=== PATIENT | male | born 1965 | race Caucasian/White ===

== ENCOUNTER 2017-02-22 08:52 | Inpatient (IN) | payer OTHER ==
[2017-02-22] MEDS ORDERED: NS 500 ML IV ONE (08:58)
[2017-02-22] MEDS ORDERED: MIDAZOLAM 2 MG/2 ML VIAL IVP ONE (08:58)
[2017-02-22] MEDS ORDERED: fentaNYL 100 MCG/2 ML INJ IVP ONE (08:58)
[2017-02-22] MEDS ORDERED: BENZOCAINE UNIT DOSE SPRAY HURRICAINE MM ONE (08:58)
[2017-02-22] MEDS ORDERED: NS 1,000 ML IV ONE (08:59)
[2017-02-22] MEDS ORDERED: DIAZEPAM 5 MG TAB PO ONE (08:59)
[2017-02-22] MEDS ORDERED: FAMOTIDINE 20 MG TAB PO ONE (08:59)
[2017-02-22] MEDS ORDERED: ASPIRIN EC 325 MG TAB PO ONE (08:59)
[2017-02-22] MEDS ORDERED: diphenhydrAMINE 25 MG CAP PO ONE (08:59)
--- NOTE | 2017-02-22 09:13 | CPEKG ---
Heart Rate: 55 RR Interval: 1091 P-R Interval: 188 QRSD Interval: 96 QT Interval: 444 QTC Interval: 425 P [place]: 46 QRS [place]: 16 T Wave [place]: 56 EKG Severity - NORMAL ECG - EKG Impression: SINUS RHYTHM Electronically Signed By: South Garcia 25-Feb-2017 10:37:04
[2017-02-22 09:26] LABS: PLATELET COUNT 219 10^3/uL (150-400)
[2017-02-22 09:37] LABS: PROTIME(PATIENT) 13.4 SEC (12.0-15.0)
[2017-02-22] MEDS ORDERED: ATROPINE SULFATE 1 MG/10 ML SYR ONE (10:21)
[2017-02-22] MEDS ORDERED: LIDOCAINE 1% 300 MG/30 ML SDV ONE (10:26)
[2017-02-22] MEDS ORDERED: IOPAMIDOL (ISOVUE-370) 150 ML BTL IV ONE (10:27)
[2017-02-22] MEDS ORDERED: fentaNYL 100 MCG/2 ML INJ ONE (10:27)
[2017-02-22] MEDS ORDERED: MIDAZOLAM 2 MG/2 ML VIAL ONE (10:27)
[2017-02-22] MEDS ORDERED: LIDOCAINE 1% 5 ML SDV ONE (10:32)
[2017-02-22] MEDS ORDERED: PROPOFOL 200 MG/20 ML VIAL ONE (10:32)
[2017-02-22] MEDS ORDERED: PHENYLEPHRINE HCL 100 MCG/ML SYR ONE (10:37)
--- NOTE | 2017-02-22 11:09 | PDGENHP ---
History & Physical Chief Complaint: abnormal aorta/outpatient testing History of Present Illness: hx of aortic aneurysm, HOCM being evaluated for surgery Pertinent Past, Social, Family History: history of aortic dissection in maternal side Relevant Physical Exam: 04/10 Cardiorespiratory Assessment: Stable CV status for RHC/LHC
--- NOTE | 2017-02-22 11:09 | PDPROPOC ---
Sedation Plan of Care Sedation Plan of Care: mental status noted, patient educated of risks, benefits , alternatives, patient can tolerate sedation ASA Classification: ASA 2 Planned drugs: fentanyl, midazolam Mallampati Score: Class 2 Mallampati Reference Image: Patient passed 3-3-2 rule?: Yes
[2017-02-22] MEDS ORDERED: HEPARIN 10,000 UNIT/10 ML MDV (1,000 UNIT/ML) ONE (11:21)
--- NOTE | 2017-02-22 12:01 | CPIP ---
[f rep st] INVASIVE CARDIAC PROCEDURE PROCEDURE: Transesophageal echocardiogram. He gave informed consent for EMILY. The indication was to assess his septum and his valvular heart dis ease. He had the procedure done with Anesthesia present, with no complications. He tolerated the procedure well, and the attached report gives the results of the study. I spoke with Dr. Sharma, who ordered the test, prior to proceeding with the transesophageal echocardio gram, and I have reported results to him. /[id number]/MODL
--- NOTE | 2017-02-22 12:31 | CPIP ---
[f rep st] INVASIVE CARDIAC PROCEDURE DATE OF PROCEDURE: 02/22/2017 INDICATIONS FOR PROCEDURE: Preoperative evaluation for aortic aneurysm surgery. PROCEDURE: 1. Nonselective right groin sheathogram. 2. 7-Moldovan sheath right common vein. 3. Bilateral selective coronary angiography. 4. Left heart catheterization. 5. Left ventriculogram. 6. Right heart catheterization with [place]-Teri catheter. HISTORY: Briefly, this is a 51-year-old male with history of dilated ascending aorta. The patient h ad outpatient testing which showed an ascending aorta measuring over 5 cm. The patient has been cons ented for possible aortic root surgery with plus or minus septal myectomy. The patient was cleared f or right and left heart catheterization. DESCRIPTION OF PROCEDURE: After consent, the patient was brought to [facility] where the right groin was pr epped and draped in a sterile fashion. Using lidocaine, a short 7-Moldovan sheath was placed in the [facility] common vein. A 6-Moldovan sheath was placed in the right common femoral artery verified angiograph ically. Through the 6-Moldovan sheath, a JL4 catheter was advanced to the left coronary artery. Images of the left coronary artery showed large normal left main. There was a small ramus intermedius comi ng off which was healthy and free of disease. The circumflex was a codominant circulation. The LPLS appeared to be healthy and free of disease. There were 2 marginal arteries coming off the circumfle x, the first marginal artery had mild 20%-30% ostial disease but otherwise appeared healthy and sai l. The LAD was a long vessel which wraps around the apex. There was a small diagonal artery coming off the midbody of the LAD. There was no significant disease in the LAD and it wraps around the apex . There was mild plaque disease in the proximal mid LAD but no significant stenosis. After images we re obtained, the JL5 catheter was removed. Of note, we utilized a JL5 secondary to the dilated aorta . A JR4 catheter was advanced to the right coronary artery. Images of the right coronary artery reve aled normal os, prox, mid RCA. There was mild tubular disease in the mid distal RCA measuring 20%-30 % disease. The RPDA appeared to be healthy and free of disease, though of small caliber. After imag es were obtained, the JR4 catheter was removed. The pigtail catheter advanced to left ventricle. LV EDP was 20 mmHg left. Left ventriculogram in the AMAYA projection showed EF of 65% with no wall motion abnormalities. There was presence of septal hypertrophy as well as on the ventriculogram. Of note though, there was no significant gradient from the pullback of the pigtail from the apex to the aorta . Pigtail catheter was then removed over the 0.035 wire. Right heart catheterization: A [place]Teri catheter was advanced. The catheter was placed in the wedge position with the A-wave 13, V-wave 14 with a mean of 11. PA pressure was measured to be 40/82 with a mean of 26. RV pressure was measured to be 48 with a diastole of 5, end of 10. RA pressure was me asured to be 10/11. PA sat was measured to be 81.2. AO sat was 96.7. Cardiac output by Kaleb was 6. 5, index was 3.25. [place]eri catheter was then removed. Right groin was sutured in place. Of note, the patient was administered 3000 heparin IV at the start of the case. IMPRESSION: 1. Mild nonobstructive coronary artery disease bilaterally in the right and left coronary arteries. 2. Mild pulmonary hypertension. 3. Septal hypertrophy with a normal ejection fraction. PLAN: The patient had a EMILY earlier this morning prior to the catheterization to assess his aortic s ize and measurements, awaiting complete report. The patient will move forward with further evaluatio n by Dr. Sharma. /[id number]/MODL
--- NOTE | 2017-02-22 13:56 | CPEKG ---
Heart Rate: 69 RR Interval: 870 P-R Interval: 184 QRSD Interval: 102 QT Interval: 448 QTC Interval: 480 P [place]: 64 QRS [place]: 17 T Wave [place]: 49 EKG Severity - BORDERLINE ECG - EKG Impression: SINUS RHYTHM EKG Impression: BORDERLINE PROLONGED QT INTERVAL EKG Impression: DIFFUSE ST ELEVATION NOTED (MINIMAL) (QUERY PERICARDITIS) Electronically Signed By: South Garcia 25-Feb-2017 10:38:07
--- NOTE | 2017-02-22 14:09 | PDGENHP ---
History and Physical - Chief Complaint asc ao aneurysm, HOCM - History of Present Illness 51M with known asc ao aneurysm of 5.1 cm and HOCM admitted in advance for risk stratification. Pt last examined on 12/19/16 during initial consultation. During that time the pt had no complaints. The pt currently states he experiences WINTER and denies weakness, light-headedness, CP, abdominal pain or LE edema. History Information - Allergies/Home Medication List Allergies/Adverse Reactions: No Known Allergies Allergy (Unverified 12/15/09 10:21) Home Medications: Aspirin [Aspirin 325 mg (*)] 325 mg PO DAILY 01/22/17 [Last Taken 02/20/17] Atorvastatin Calcium [Lipitor 10 mg (*)] 10 mg PO HS 01/22/17 [Last Taken ] Cholecalciferol Vit D3 [Vitamin D3 2000 units tab (OTC)] 2,000 units PO HS 01/22 [Last Taken 2 Days Ago ~02/20/17] Herbals/Supplements -Info Only 1 ea PO DAILY 01/22/17 [Last Taken Unknown] Metoprolol Tartrate [Lopressor 25 mg (*)] 25 mg PO BID 01/22/17 [Last Taken 21:00] Multivitamins [Multivitamin (*)] 1 each PO HS 01/22/17 [Last Taken 2 Days Ago ~ 02/20/17] Carboxymethylcellulose 1% [Refresh Celluvisc (*)] 1 [place] EACHEYE DAILY PRN [Last Taken Unknown] Diltiazem HCl [Cartia XT 180mg] 180 mg PO HS 02/15/17 [Last Taken 02/21/17] Cyanocobalamin [Vitamin B12 (*)] 1,000 mcg PO HS 02/22/17 [Last Taken 02/20/17] I have personally reviewed and updated: medical history, social history, surgical history - Past Medical History COPD (obstructive (moderate)), hypertension, hyperlipidemia - Social History Smoking Status: Former smoker Alcohol Use: Occasionally Drug Use: None Review of Systems Review of Systems: ROS: 10pt was reviewed & negative except for what was stated in HPI & below Physical Exam Physical Exam: Constitutional: no apparent distress, appears nourished, not in pain Eyes: anicteric sclera Ears, Nose, Mouth, Throat: moist mucous membranes, hearing normal, ears appear normal, no oral mucosal ulcers Cardiovascular: bradycardia Respiratory: no respiratory distress Gastrointestinal: soft, non-tender abdomen Skin: warm, normal color Musculoskeletal: full muscle strength, no muscle tenderness, normal joint ROM Neurologic: AAOx3, sensation intact bilaterally Psychiatric: interacting appropriately, not anxious, not encephalopathic, thought process linear Lab Data & Imaging Review 02/22/17 09:17 02/22/17 09:17 WBC 8.23 10^3/uL (3.80-9.50) 02/22/17 09:17 RBC 5.63 10^6/uL (4.40-6.38) 02/22/17 09:17 Hgb 16.6 g/dL (13.7-17.5) 02/22/17 09:17 Hct 46.2 % (40.0-51.0) 02/22/17 09:17 MCV 82.1 fL (81.5-99.8) 02/22/17 09:17 MCH 29.5 pg (27.9-34.1) 02/22/17 09:17 MCHC 35.9 g/dL (32.4-36.7) 02/22/17 09:17 RDW 11.9 % (11.5-15.2) 02/22/17 09:17 Plt Count 219 10^3/uL (150-400) 02/22/17 09:17 MPV 8.7 fL (8.7-11.7) 02/22/17 09:17 Neut % (Auto) 59.1 % (39.3-74.2) 02/22/17 09:17 Lymph % (Auto) 27.8 % (15.0-45.0) 02/22/17 09:17 [place] % (Auto) 7.5 % (4.5-13.0) 02/22/17 09:17 Eos % (Auto) 4.1 % (0.6-7.6) 02/22/17 09:17 Baso % (Auto) 1.1 % (0.3-1.7) 02/22/17 09:17 Nucleat RBC Rel Count 0.0 % (0.0-0.2) 02/22/17 09:17 Absolute Neuts (auto) 4.86 10^3/uL (1.70-6.50) 02/22/17 09:17 Absolute Lymphs (auto) 2.29 10^3/uL (1.00-3.00) 02/22/17 09:17 Absolute Monos (auto) 0.62 10^3/uL (0.30-0.80) 02/22/17 09:17 Absolute Eos (auto) 0.34 10^3/uL (0.03-0.40) 02/22/17 09:17 Absolute Basos (auto) 0.09 10^3/uL (0.02-0.10) 02/22/17 09:17 Absolute Nucleated RBC 0.00 10^3/uL (0-0.01) 02/22/17 09:17 Immature Gran % 0.4 % (0.0-1.1) 02/22/17 09:17 Immature Gran # 0.03 10^3/uL (0.00-0.10) 02/22/17 09:17 PT 13.4 SEC (12.0-15.0) 02/22/17 09:17 INR 1.00 (0.83-1.16) 02/22/17 09:17 Sodium 144 mEq/L (135-145) 02/22/17 09:17 Potassium 4.4 mEq/L (3.5-5.2) 02/22/17 09:17 Chloride 104 mEq/L (97-110) 02/22/17 09:17 Carbon Dioxide 26 mEq/l (22-31) 02/22/17 09:17 Anion Gap 14 mEq/L (8-16) 02/22/17 09:17 BUN 16 mg/dL (7-23) 02/22/17 09:17 Creatinine 1.0 mg/dL (0.7-1.3) 02/22/17 09:17 Estimated GFR > 60 02/22/17 09:17 Glucose 89 mg/dL (70-100) 02/22/17 09:17 Hemoglobin A1c 5.0 % (4.0-6.0) 02/22/17 09:17 Estim Average Glucose 97 mg/dL (68-126) 02/22/17 09:17 Calcium 10.5 mg/dL (8.5-10.4) H 02/22/17 09:17 Magnesium 2.0 mg/dL (1.6-2.3) 02/22/17 09:17 Triglycerides 125 mg/dL (40-150) 02/22/17 09:17 Cholesterol 157 mg/dL (140-220) 02/22/17 09:17 Cholesterol Risk Factr 0.5 (0.2-1.0) 02/22/17 09: LDL Cholesterol, Calc 85 mg/dL (80-100) 02/22/17 09: LDL Risk Factor 0.8 (0.2-1.0) 02/22/17 09:17 VLDL Cholesterol 25 mg/dL (8-25) 02/22/17 09:17 Non-HDL Cholesterol 110 mg/dL (90-129) 02/22/17 09:17 HDL Cholesterol 47 mg/dL (40-65) 02/22/17 09:17 LDL/HDL Ratio 1.81 RATIO (1.00-3.64) 02/22/17 09:17 Cholesterol/HDL Ratio 3.34 RATIO (1.00-4.97) 02/22/17 09:17 Patient ABO/Rh A NEGATIVE 02/22/17 09: Antibody Screen NEGATIVE 02/22/17 09:17 Imaging Review: 03/03/16 ECHO: mild MR, mild TR, normal EF of 65%, asc ao 4.6 cm, severe asymmetric septal hypertrophy, peak LVOT gradient 72 mmHg 02/22/17 LHC: non-obstructive CAD, mild pulmonary htn Visualized and Interpreted Chest x-ray results: No Chest X-Ray results: other (pending) Visualized and Interpreted EKG results: Yes EKG Interpretation: Positive for: normal sinsus rhythm (bradycardic) Assessment & Plan Assessment: 51M with HOCM and asc ao aneurysm Plan: For asc ao repair and septal myectomy on 02/22/17
[2017-02-22] MEDS ORDERED: ACETAMINOPHEN 325 MG TAB PO PRN (14:26)
[2017-02-22] MEDS ORDERED: METOPROLOL TARTRATE 25 MG TAB PO SCH (21:00)
[2017-02-22] MEDS ORDERED: DILTIAZEM CD 180 MG CAP PO SCH (21:00)
[2017-02-22] MEDS ORDERED: CHLORHEXIDINE GLUC HIBICLENS 118 ML BTL TP SCH (21:00)
[2017-02-23] MEDS ORDERED: TRANEXAMIC ACID 1,000 MG in NS 100 ML IV ONE (06:00)
[2017-02-23] MEDS ORDERED: MUPIROCIN 2% 22 GM OINT NS ONE (06:00)
[2017-02-23] MEDS ORDERED: SODIUM BICARBONATE 20 MEQ, LIDOCAINE 1% 10 ML in NORMOSOL-R 1,000 ML MISC ONE (06:00)
[2017-02-23] MEDS ORDERED: PHENYLEPHRINE HCL 50 MG in NS 250 ML IV ONE (06:00)
[2017-02-23] MEDS ORDERED: NOREPINEPHRINE BITARTRATE 16 MG in NS 250 ML IV ONE (06:00)
[2017-02-23] MEDS ORDERED: INSULIN REGULAR HUMAN 100 UNIT in NS 100 ML IV ONE (06:00)
[2017-02-23] MEDS ORDERED: ceFAZolin 2 GM/SWFI 2 GM/20 ML SYR IVP ONE (06:00)
[2017-02-23] MEDS ORDERED: niCARdipine/NACL 200 ML IV SCH (06:00)
[2017-02-23] MEDS ORDERED: CITRATE DEXTROSE SOLN 500 ML BAG MISC ONE (06:00)
[2017-02-23] MEDS ORDERED: MANNITOL 25% 12.5 GM/50 ML VIAL IVP ONE (06:00)
[2017-02-23] MEDS ORDERED: PROTAMINE SULFATE 50 MG/5 ML VIAL IVP ONE (06:41)
[2017-02-23] MEDS ORDERED: HEPARIN 10,000 UNIT/10 ML MDV (1,000 UNIT/ML) ONE ×2 (06:42→06:44)
[2017-02-23] MEDS ORDERED: niCARdipine/NACL/200 ML BAG IV ONE (06:42)
[2017-02-23] MEDS ORDERED: MILRINONE/DEXTROSE/100 ML BAG IV ONE (06:42)
[2017-02-23] MEDS ORDERED: CALCIUM CHLORIDE 1 GM/10 ML INJ ONE ×3 (06:42→09:58)
[2017-02-23] MEDS ORDERED: NA BICARBONATE 50 MEQ/50 ML VIAL ONE (06:42)
[2017-02-23] MEDS ORDERED: DOPamine/DEXTROSE/250 ML BAG IV ONE (06:42)
[2017-02-23] MEDS ORDERED: AMIODARONE HCL 150 MG/3 ML VIAL ONE ×2 (06:43→06:44)
[2017-02-23] MEDS ORDERED: ALBUMIN 5% 250 ML BOTTLE IV ONE ×2 (06:43→11:16)
[2017-02-23] MEDS ORDERED: LIDOCAINE 2% 100 MG/5 ML SYR ONE ×2 (06:43→07:16)
[2017-02-23] MEDS ORDERED: ceFAZolin 1 GM VIAL ONE (06:43)
[2017-02-23] MEDS ORDERED: ADENOSINE 6 MG/2 ML VIAL ONE (06:43)
[2017-02-23] MEDS ORDERED: methylPREDNISolone SOD SUCC 1 GM/8 ML VIAL ONE (06:44)
[2017-02-23] MEDS ORDERED: MAGNESIUM SULFATE 1 GM/2 ML VIAL ONE (06:44)
[2017-02-23] MEDS ORDERED: CITRATE DEXTROSE SOLN 500 ML BAG ONE (06:44)
[2017-02-23] MEDS ORDERED: LR 1,000 ML IV ONE (06:49)
[2017-02-23] MEDS ORDERED: MIDAZOLAM 2 MG/2 ML VIAL IVP ONE (06:58)
[2017-02-23] MEDS ORDERED: VERAPAMIL 5 MG/2 ML VIAL ONE (06:59)
[2017-02-23] MEDS ORDERED: DEXMEDETOMIDINE HCL 400 MCG in NS 100 ML IV SCH (07:00)
[2017-02-23] MEDS ORDERED: VERAPAMIL 5 MG, NITROGLYCERIN 2.5 MG, HEPARIN 500 UNIT, SODIUM BICARBONATE 0.2 MEQ in L... MISC ONE (07:00)
[2017-02-23] MEDS ORDERED: MINERAL OIL 10 ML VIAL ONE (07:02)
[2017-02-23] MEDS ORDERED: PAPAVERINE HCL 60 MG/2 ML SDV ONE (07:02)
--- NOTE | 2017-02-23 07:02 | PDANEPAE ---
ANE History of Present Illness HOCM and aortic anuerism ANE Past Medical History - Cardiovascular History Hx Hypertension: Yes Hx Arrhythmias: No Hx Chest Pain: No Hx Coronary Artery / Peripheral Vascular Disease: Yes Hx CHF / Valvular Disease: No Hx Palpitations: No Cardiovascular History Comment: aneurysm ascending aorta since 2009. murmur w/ leaky valve. - Pulmonary History Hx COPD: Yes Hx Asthma/Reactive Airway Disease: No Hx Recent Upper Respiratory Infection: No Hx Oxygen in Use at Home: No Hx Sleep Apnea: Yes Sleep Apnea Screening Result - Last Documented: Positive Pulmonary History Comment: SOB w/ strenuous acitivity - Neurologic History Hx Cerebrovascular Accident: No Hx Seizures: No Hx Dementia: No Neurologic History Comment: occ stress H/A's - Endocrine History Hx Diabetes: No - Renal History Hx Renal Disorders: No - Liver History Hx Hepatic Disorders: No - Neurological & Psychiatric Hx Hx Neurological and Psychiatric Disorders: No - Cancer History Hx Cancer: No - Congenital Disorder History Hx Congenital Disorders: No - GI History Hx Gastrointestinal Disorders: No - Other Health History Other Health History: L shoulder pain - Chronic Pain History Chronic Pain: No - Surgical History Prior Surgeries: oral surgery-wisdom teeth ANE Review of Systems Review of Systems: - Exercise capacity METS (RN): 4 METS ANE Patient History - Allergies Allergies/Adverse Reactions: No Known Allergies Allergy (Unverified 12/15/09 10:21) - Home Medications Home medications: home medication list seen and reviewed Home Medications: Aspirin [Aspirin 325 mg (*)] 325 mg PO DAILY 01/22/17 [Last Taken 02/20/17] Atorvastatin Calcium [Lipitor 10 mg (*)] 10 mg PO HS 01/22/17 [Last Taken ] Cholecalciferol Vit D3 [Vitamin D3 2000 units tab (OTC)] 2,000 units PO HS 01/22 [Last Taken 2 Days Ago ~02/20/17] Herbals/Supplements -Info Only 1 ea PO DAILY 01/22/17 [Last Taken Unknown] Metoprolol Tartrate [Lopressor 25 mg (*)] 25 mg PO BID 01/22/17 [Last Taken 21:00] Multivitamins [Multivitamin (*)] 1 each PO HS 01/22/17 [Last Taken 2 Days Ago ~ 02/20/17] Carboxymethylcellulose 1% [Refresh Celluvisc (*)] 1 [place] EACHEYE DAILY PRN [Last Taken Unknown] Diltiazem HCl [Cartia XT 180mg] 180 mg PO HS 02/15/17 [Last Taken 02/21/17] Cyanocobalamin [Vitamin B12 (*)] 1,000 mcg PO HS 02/22/17 [Last Taken 02/20/17] - NPO status NPO Status: no food or drink >8 hours NPO Since - Liquids (Date): 02/23/17 NPO Since - Liquids (Time): 00:00 NPO Since - Solids (Date): 02/23/17 NPO Since - Solids (Time): 00:00 - Anes Hx Anes Hx: no prior problems - Smoking Hx Smoking Status: Former smoker - Alcohol Use Alcohol Use: Occasionally - Family Anes Hx Family Anes Hx: none Family Hx Anesthesia Complications: none ANE Labs/Vital Signs - Labs Result Diagrams: 02/22/17 09:17 02/22/17 09:17 - Vital Signs Blood Pressure: 109/74 Heart Rate: 72 Respiratory Rate: 12 O2 Sat (%): 96 Height: 172.72 cm Weight: 87.4 kg ANE Physical Exam - Airway Neck exam: FROM Mallampati Score: Class 2 Mouth exam: abnormal chin (shortened chin) - Pulmonary Pulmonary: no respiratory distress (expiritory wheeze) - Cardiovascular Cardiovascular: regular rate and rhythym - ASA Status ASA Status: III ANE Anesthesia Plan Anesthesia Plan: general endotracheal anesthesia Lines/Monitors: arterial line, central line, EMILY (R/B/A explained and patient agress to proceed)
[2017-02-23] MEDS ORDERED: MIDAZOLAM 2 MG/2 ML VIAL ONE ×2 (07:03→07:14)
[2017-02-23] MEDS ORDERED: PROPOFOL/EMULSION 500 MG/50 ML BOTTLE IV ONE (07:14)
[2017-02-23] MEDS ORDERED: fentaNYL 250 MCG/5 ML INJ ONE (07:14)
[2017-02-23] MEDS ORDERED: REMIFENTANIL HCL 1 MG VIAL ONE (07:14)
[2017-02-23] MEDS ORDERED: PHENYLEPHRINE HCL 100 MCG/ML SYR ONE ×2 (07:16→08:30)
[2017-02-23] MEDS ORDERED: ONDANSETRON 4 MG/2 ML VIAL ONE (07:16)
[2017-02-23] MEDS ORDERED: DEXAMETHASONE 4 MG/ML VIAL ONE ×2 (07:16)
[2017-02-23] MEDS ORDERED: ROCURONIUM 100 MG/10 ML VIAL ONE (07:16)
[2017-02-23] MEDS ORDERED: LIDOCAINE HCL 160 MG/4 ML LTA KIT TP ONE (07:16)
[2017-02-23] MEDS ORDERED: DEXMEDETOMIDINE/NS 4MCG/ML 50 ML BTL IV ONE (10:05)
[2017-02-23] MEDS ORDERED: PROPOFOL 200 MG/20 ML VIAL ONE (10:19)
[2017-02-23] MEDS ORDERED: SUGAMMADEX SODIUM 200 MG/2 ML VIAL IVP ONE (10:35)
[2017-02-23] MEDS ORDERED: D50W 25 GM/50 ML SYR IVP PRN (10:46)
[2017-02-23] MEDS ORDERED: LACTULOSE 20 GM/30 ML UDCUP PO PRN (10:46)
[2017-02-23] MEDS ORDERED: METOCLOPRAMIDE 10 MG/2 ML VIAL IVP PRN (10:46)
[2017-02-23] MEDS ORDERED: ONDANSETRON DISINTEGRATING 4 MG TAB PO PRN (10:46)
[2017-02-23] MEDS ORDERED: fentaNYL 100 MCG/2 ML INJ IVP PRN (10:46)
[2017-02-23] MEDS ORDERED: POTASSIUM Cl (KCl) 50 ML IV PRN (10:46)
[2017-02-23] MEDS ORDERED: BISACODYL 10 MG SUPP PR PRN (10:46)
[2017-02-23] MEDS ORDERED: POLYETHYLENE GLYCOL 3350 17 GM PKT PO PRN (10:46)
[2017-02-23] MEDS ORDERED: MEPERIDINE 25 MG/ML SYR IVP PRN (10:46)
[2017-02-23] MEDS ORDERED: MAGNESIUM HYDROXIDE 30 ML UDCUP PO PRN (10:46)
[2017-02-23] MEDS ORDERED: PANTOPRAZOLE SODIUM 40 MG VIAL IVP ONE (10:46)
[2017-02-23] MEDS ORDERED: ONDANSETRON 4 MG/2 ML VIAL IVP PRN (10:46)
[2017-02-23] MEDS ORDERED: ALBUMIN 5% 250 ML IV PRN (10:46)
[2017-02-23] MEDS ORDERED: MAGNESIUM SULF 2 GM/WATER 50 ML IV ONE (10:46)
[2017-02-23] MEDS ORDERED: SODIUM CL NASAL 45 ML BTL EACHNARE PRN (10:46)
[2017-02-23] MEDS ORDERED: ACETAMINOPHEN 650 MG SUPP PR PRN (10:46)
[2017-02-23] MEDS ORDERED: INSULIN REGULAR HUMAN 100 UNIT in NS 100 ML IV SCH (11:00)
[2017-02-23] MEDS ORDERED: NS 1,000 ML IV SCH ×2 (11:00→17:00)
[2017-02-23] MEDS: KETOROLAC 15 MG/1 ML SDV IVP SCH ×3 (11:25→23:31)
[2017-02-23] MEDS ORDERED: fentaNYL 50 MCG PATCH TD ONE (11:30)
[2017-02-23] MEDS: ceFAZolin 2 GM/SWFI 2 GM/20 ML SYR IVP SCH ×2 (13:33→22:06)
--- NOTE | 2017-02-23 13:59 | POSTANESTH ---
Post Anesthetic Evaluation Cardiovascular Status: Similar to Pre-Op Cond Respiratory Status: Normal, Stable Level of Consciousness/Mental Status: Can Participate in Eval, Mildly Sleepy, Arousable Pain Control: Inadeq, Add Tx Required Nausea/Vomiting Control: Adequate, Prn Tx Ordered Complications Possibly Related to Anesthesia: None Noted
[2017-02-23] MEDS ORDERED: ceFAZolin 2 GM/DEXTROSE 100 ML IV SCH (14:00)
[2017-02-23] MEDS: CEPACOL LOZENGE PO PRN (14:51)
[2017-02-23] MEDS ORDERED: CARBOXYMETHYLCELLULOSE 1% 0.4 ML DROPERETTE EACHEYE PRN (15:00)
--- NOTE | 2017-02-23 15:07 | GOP ---
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 PREOPERATIVE DIAGNOSIS: 1. Septal hypertrophic obstructive cardiomyopathy and moderate mitral regurgitation. 2. Ascending aortic aneurysm with family history of dissection. 3, Aortic insufficiency POSTOPERATIVE DIAGNOSIS: 1. Septal hypertrophic obstructive cardiomyopathy and moderate mitral regurgitation. 2. Ascending aortic aneurysm with family history of dissection. 3. Aortic insufficiency PROCEDURE PERFORMED: 1. Extended septal myectomy. 2. Replace ascending aorta with #26 Hemashield graft. 3. Aortic valvuloplasty for aortic insufficiency with commissuroplasty and reduction of STJ 4. Atrial clip to the left atrial appendage. FINDINGS: The patient presented with a history of familial dissection, was noted to have a 5 cm ascending aorta. He was consented for surgery. He had known underlying severe COPD as well with bolus emphysema. He had evidence of HOCM with anterior leaflet MONA with moderate mitral insufficiency. He was consented for surgery. His catheterization showed no coronary obstructions. DESCRIPTION OF PROCEDURE: He was brought to the operating room, intubated, monitoring lines were placed. He was prepped and draped in sterile classical manner. Intraoperative transesophageal echo with the patient sedated showed moderate to severe mitral regurgitation posteriorly directed late in valve closure sequence, consistent with hypertrophic obstructive cardiomyopathic disease. He was noted to have a proximal septal hypertrophy. He was also noted to have moderate aortic insufficiency with what appeared to be a trileaflet valve and marked dilation of the sinotubular junction at the ascending aorta. A sternotomy was performed. He was heparinized, cannulated in the transverse arch and bicaval cannulas. Cardiopulmonary bypass was begun, and cardioplegic arrest was obtained with intermittent antegrade cardioplegia, retrograde cardioplegia, topical hypothermia, and systemic cooling. Aortotomy was performed. The aorta was excised from sinotubular junction where it was measured 26 mm to the innominate artery base. The valve was trileaflet with evidence of prolapse of the leaflet of the noncoronary cusp, with some fenestration at the commissures. The leaflets were without calcification and were quite pliable. The sinuses were mildly dilated. We then exposed the septum below the right coronary artery and right leaflet of the aortic valve with gentle retraction. We excised beginning as a standard [place] myectomy but extending in a trapezoid fashion toward the apex and toward the mitral valve in a fan-shaped manner approximately 1 cm deep, all the way down to the apex. There was noted to be some abnormal chordal attachments from the papillary muscle to the septum, which were divided all the way down to the apex as well. The papillary muscle was mobilized and away from the septum as much as possible. There were no abnormal attachments of papillary muscle to the anterior leaflet. The anterior leaflet did not appear to be markedly elongated. I then did 3 commissuroplasties utilizing 5-0 Prolene, felt reinforced, at each commissure, reducing the length of all 3 leaflets, resulting in better coaptation and no regurgitation with filling of sinuses with saline, with the LV sump on. We then downsized the sinotubular junction, which probably actually measured from a 28-30 mm to 26 in order to also improve aortic valve coaptation. We replaced that end-to-end distally and proximally with a continuous running 3-0 Prolene suture. BioGlue was applied externally with the vents off. We then placed a vent in the ascending aorta. We then placed an atrial clip across the base of the left atrial appendage, avoiding the circumflex artery. He was intermittently aspirated through the LV apex in Trendelenburg. When no further air was identified, both vents were placed on, the cross-clamp was removed, and suction was maintained until no further air was identified. He was then weaned from bypass. Echo revealed elimination of his mitral regurgitation, despite pacing at 120. The preoperative gradients were measured only 30. No postop gradients were measured. With transseptal puncture, appeared to be no turbulence across the outflow tract, no regurgitation and no significant aortic regurgitation post repair, or stenosis. The heparin was reversed with protamine. The cannula was removed and oversewn. 4 pacing wires, 2 mediastinal drains were placed. The thymic fat and pericardium were closed. Chest was closed in standard fashion. The patient was returned to ICU in stable condition. /[id number]/MODL MTDD
[2017-02-23] MEDS: MUPIROCIN 2% 22 GM OINT NS SCH (20:20)
[2017-02-23] MEDS: HYDROCODONE/APAP 5/325 TAB PO PRN (20:31)
--- NOTE | 2017-02-23 20:43 | GCON ---
[f rep st] CONSULTATION BREAKFAST BAR ATTENDANT CONSULTATION. REASON FOR CONSULTATION: Patient examined postoperatively after receiving a septal myectomy and aneu rysmectomy mitral valve replacement. HISTORY OF PRESENT ILLNESS: This is a 51-year-old white male, with a past medical history of tobacco abuse, chronic obstructive pulmonary disease, hypertension, and hyperlipidemia. He is examined post operatively. In discussion with the patient, he states that with the exception of chest pain from th e surgery, he is doing quite well. He denies any shortness of breath. There is no cough or producti ve sputum. There is no fever or night sweats. He is currently resting comfortably. REVIEW OF SYSTEMS: A 10-point review of system was performed and was negative except what was in the history of Present Illness. ALLERGIES: No known to medications. SOCIAL HISTORY: Previous heavy smoker, none recently. No significant alcohol use. MEDICATIONS: At home include: 1. Aspirin. 2. Lipitor. 3. Vitamin D3. 4. Metoprolol. 5. Multivitamin. 6. Diltiazem. 7. Cyanocobalamin. FAMILY HISTORY: Noncontributory. LABORATORIES: White count is 8.2, hemoglobin 16, hematocrit 46, platelet count 219. INR is 1. [place] um 144, potassium 4.4, chloride 104, CO2 is 26, BUN 16, creatinine 1, glucose 89. IMPRESSION: 1. Status post aortic valvuloplasty aorta repair and septal myectomy. 2. Chronic obstructive pulmonary disease. 3. Hypertension. 4. Hyperlipidemia. 5. Pain adequately controlled. 6. Respiratory stable off mechanical ventilation. RECOMMENDATIONS: 1. Continue adequate pain control. 2. DVT and PE prophylaxis holding anticoagulation for now. 3. Stress ulcer prophylaxis. 4. Aggressive blood sugar control. 5. PT and OT. 6. Early ambulation. /[id number]/MODL
[2017-02-24 05:16] LABS: PLATELET COUNT 154 10^3/uL (150-400)
[2017-02-24] MEDS: HEPARIN 5,000 UNIT/0.5 ML SYR SC SCH ×3 (05:36→22:02)
[2017-02-24] MEDS: ceFAZolin 2 GM/SWFI 2 GM/20 ML SYR IVP SCH ×3 (05:36→22:03)
[2017-02-24] MEDS: KETOROLAC 15 MG/1 ML SDV IVP SCH ×3 (05:36→17:36)
[2017-02-24] MEDS: PANTOPRAZOLE SODIUM 40 MG TAB PO SCH (07:45)
[2017-02-24] MEDS: ASPIRIN 81 MG CHEWABLE TAB PO SCH (07:45)
[2017-02-24] MEDS: MUPIROCIN 2% 22 GM OINT NS SCH ×2 (07:46→22:03)
--- NOTE | 2017-02-24 07:48 | SOAPPROG ---
SOAP Progress Note Assessment/Plan: Assessment: POD#1 Transaortic septal myomectomy, aortic valvuloplasty, asc aortic replacement w #26 hemashield graft, prophylactic AtriClip lig LISA HOCM with severe asymmetric septal hypertrophy, mitral MONA and mild to moderate MR - Mitral competency restored s/p extended transaortic septal myomectomy. Surveillance per cardiology. Aneurysmal ascending aorta with AI - Aortic competency restored with commissuroplasty. Asc aorta replaced from STJ to innominate with dacron interposition graft. Stable early postop course without vasoactive support, tachyarrhythmias, backup pacing or significant volume overload. Antithrombotic prophylaxis with ASA alone pending stability of rhythm. Acute expected blood loss anemia - Stable. No blood or blood products transfused. RAD/emphysema - Stable. Extubated in the OR. No bronchodilators, IPPB, mucolytics required. Steady decrease in suppl O2 req. Coronary atherosclerosis with preserved LV systolic fx - Stable. Secondary prevention with baby ASA, BB as allowed by BP, and statin when eating well. Plan: Routine POD#1 orders re lines, drains, wires, orals and mobility. Start metoprolol 12.5 mg BID w conservative hold parameters. Tx to PCU. 02/24/17 07:42 Subjective: Feels much better than expected. OOB and light breakfast well tolerated. Satisfactory analgesia. Objective: Vital Signs Temp Pulse Resp BP Pulse Ox 36.6 C 105 H 22 H 132/75 H 92 02/24/17 06:00 02/24/17 06:00 02/24/17 06:00 02/24/17 06:00 02/24/17 06:00 Laboratory Results 02/24/17 04:42 02/24/17 04:42 02/23/17 02/24/17 02/25/17 05:59 05:59 05:59 Intake Total 110 1636 Output Total 700 2106 375 Balance -590 -470 -375 PT 13.4 SEC (12.0-15.0) 02/22/17 09:17 INR 1.00 (0.83-1.16) 02/22/17 09:17 Stable HR, rhythm, BP and O2 sats. Marginal BP/UOP overnoc resolved with maintenance IVF. No sig CTOP. CXR -> no PTX, mild pulm vasc congestion, no undrained effusions Labs as expected. Physical Exam - Physical Exam General Appearance: alert, no apparent distress Respiratory: lungs clear (grossly), other (blakes x 2 y-d to pleurovac, serosang drainage, no tidal, no air leak) Cardiac/Chest: regular rate, rhythm, other (Sternotomy CDI) Abdomen: normal bowel sounds, non-tender, soft Skin: warm/dry Extremities: swelling (trace) ICD10 Worksheet Patient Problems: Problems Problem Status Onset Acute blood loss anemia Acute S/P ascending aortic replacement Acute ~02/23/17 S/P ventricular septal myectomy Acute ~02/23/17 Ascending aortic aneurysm Chronic Asymmetric septal hypertrophy Chronic Hypertrophic obstructive cardiomyopathy (HOCM) Chronic
[2017-02-24] MEDS ORDERED: METOPROLOL TARTRATE 5 MG/5 ML INJ IVP ONE (10:14)
--- NOTE | 2017-02-24 10:57 | PDINTPN ---
Media Services Director Progress Note Assessment/Plan: Assessment/plan: * Status post transaortic septal myomectomy, aortic valvuloplasty, asc aortic replacement * Chronic obstructive pulmonary disease-stable -consider pulmonary follow-up as an outpatient * History of tobacco abuse * Pain-well controlled * VTE prophylaxis * Stress ulcer prophylaxis * PT/OT * Nutrition-adequate * Ambulation in the lino Subjective: Resting comfortably. Ambulated well the halls today. Pain well controlled Objective: Vital Signs Temp Pulse Resp BP Pulse Ox 36.4 C 115 H 16 115/67 93 02/24/17 07:00 02/24/17 10:00 02/24/17 10:00 02/24/17 10:00 02/24/17 10:00 Laboratory Results 02/24/17 04:42 02/24/17 04:42 02/23/17 02/24/17 02/25/17 05:59 05:59 05:59 Intake Total 110 1636 Output Total 700 2106 375 Balance -590 -470 -375 PT 13.4 SEC (12.0-15.0) 02/22/17 09:17 INR 1.00 (0.83-1.16) 02/22/17 09:17 - Time Spent With Patient Time Spent With Patient: 35 min of time spent with patient, over 1/2 involved with coordination of care or counseling Physical Exam - Physical Exam General Appearance: alert, no apparent distress EENT: PERRL/EOMI, normal ENT inspection Neck: non-tender, full range of motion, supple, normal inspection Respiratory: prolonged expiration, No respiratory distress, No wheezing Cardiac/Chest: normal peripheral pulses, regular rate, rhythm, systolic murmur Peripheral Pulses: 2+: carotid (R), carotid (L), femoral (R), femoral (L), dorsalis-pedis (R), dorsalis-pedis (L) Abdomen: normal bowel sounds, non-tender, soft Male Genitalia: deferred Rectal: deferred Skin: normal color, warm/dry Neuro/Psych: no motor/sensory deficits, alert, normal mood/affect, oriented x 3 ICD10 Worksheet Patient Problems: Problems Problem Status Onset Acute blood loss anemia Acute S/P ascending aortic replacement Acute ~02/23/17 S/P ventricular septal myectomy Acute ~02/23/17 Ascending aortic aneurysm Chronic Asymmetric septal hypertrophy Chronic Hypertrophic obstructive cardiomyopathy (HOCM) Chronic
[2017-02-24] MEDS: METOPROLOL TARTRATE 25 MG TAB PO SCH ×2 (10:59→22:02)
[2017-02-24] MEDS ORDERED: METOPROLOL TARTRATE 25 MG TAB PO SCH (21:00)
[2017-02-24] MEDS: SENNOSIDES/DOCUSATE SODIUM TAB PO SCH (22:00)
[2017-02-25] MEDS: HYDROCODONE/APAP 5/325 TAB PO PRN ×5 (03:13→23:07)
[2017-02-25 05:53] LABS: PLATELET COUNT 111 10^3/uL (150-400)
[2017-02-25] MEDS: HEPARIN 5,000 UNIT/0.5 ML SYR SC SCH ×3 (05:54→20:33)
[2017-02-25] MEDS: PANTOPRAZOLE SODIUM 40 MG TAB PO SCH (07:49)
[2017-02-25] MEDS: METOPROLOL TARTRATE 25 MG TAB PO SCH ×2 (07:49→20:27)
[2017-02-25] MEDS: MUPIROCIN 2% 22 GM OINT NS SCH (07:49)
[2017-02-25] MEDS: ASPIRIN 81 MG CHEWABLE TAB PO SCH (07:50)
[2017-02-25] MEDS: traMADol 50 MG TAB PO PRN ×2 (07:50→08:52)
[2017-02-25] MEDS: SENNOSIDES/DOCUSATE SODIUM TAB PO SCH ×2 (07:50→20:26)
--- NOTE | 2017-02-25 07:55 | SOAPPROG ---
SOAP Progress Note Assessment/Plan: Assessment: POD#2 Transaortic septal myomectomy, aortic valvuloplasty, asc aortic replacement w #26 hemashield graft, prophylactic AtriClip lig LISA HOCM with severe asymmetric septal hypertrophy, mitral MONA and mild to moderate MR - Mitral competency restored s/p extended transaortic septal myomectomy. Surveillance per cardiology. Aneurysmal ascending aorta with AI - Aortic competency restored with commissuroplasty. Asc aorta replaced from STJ to innominate with dacron interposition graft. Stable early postop course without vasoactive support, tachyarrhythmias, backup pacing or significant volume overload. Antithrombotic prophylaxis with ASA alone pending stability of rhythm. Acute expected blood loss anemia - Stable. No blood or blood products transfused. RAD/emphysema - Stable. Extubated in the OR. No bronchodilators, IPPB, mucolytics required. Steady decrease in suppl O2 req. Coronary atherosclerosis with preserved LV systolic fx - Stable. Secondary prevention with baby ASA, BB, and statin. Plan: Cont metoprolol 25 mg BID. Awires and ant mediastinal joanne removed. Inc activity. Baseline postop echo tomorrow. Dispo - Anticipate home without services in 2 days. 02/25/17 07:52 Subjective: Improving appetite. No longer thirsty. Adequate analgesia. Light activity well tolerated. Objective: Vital Signs Temp Pulse Resp BP Pulse Ox 36.8 C 93 18 113/74 95 02/25/17 07:25 02/25/17 07:25 02/25/17 07:25 02/25/17 07:25 02/25/17 07:25 Laboratory Results 02/25/17 05:25 02/25/17 05:25 02/24/17 02/25/17 02/26/17 05:59 05:59 05:59 Intake Total 1636 4140 Output Total 2106 1050 75 Balance -470 3090 -75 PT 13.4 SEC (12.0-15.0) 02/22/17 09:17 INR 1.00 (0.83-1.16) 02/22/17 09:17 Holding SR 80s-90s at rest. SBP > 100. UOP less than expected and sl bump in Cr despite liberalized fluids yest. May need higher perfusion pressures. Ant med drain at removal criteria. Decr in H/H likely dilutional as +3L/24h. Physical Exam - Physical Exam General Appearance: alert, no apparent distress Respiratory: lungs clear (grossly), other (blakes x 2 to bulb suction, thin serosang drainage. Ant med drain removed without incident.) Cardiac/Chest: regular rate, rhythm, friction rub, other (Sternum grossly stable. Sternotomy CDI. A&V wires intact. Awires clipped at skin.) Abdomen: non-tender, soft Skin: warm/dry Extremities: other (no visible leg edema) ICD10 Worksheet Patient Problems: Problems Problem Status Onset Acute blood loss anemia Acute S/P ascending aortic replacement Acute ~02/23/17 S/P ventricular septal myectomy Acute ~02/23/17 Ascending aortic aneurysm Chronic Asymmetric septal hypertrophy Chronic Hypertrophic obstructive cardiomyopathy (HOCM) Chronic
[2017-02-25] MEDS ORDERED: IPRATROPIUM/ALBUTEROL 3 ML DEYVIAL IH PRN (09:00)
--- NOTE | 2017-02-25 12:35 | ASMTCMCOM ---
CM Note CM Note Notes: 02/25/2017 Case Management Note Reviewed chart, discussed in rounds. PT is recommending home independent. There are no case management d/c needs identified d/t pt age, marital status and activity levels prior to admission. Pt is independent in ADL's. Case Management d/c poc: home independent with follow up as directed. Case Management available if needs change. Date Signed: 02/25/2017 12:34 PM Electronically Signed By:Alona Dickson RN
[2017-02-26] MEDS: CEPACOL LOZENGE PO PRN (04:50)
[2017-02-26] MEDS: HEPARIN 5,000 UNIT/0.5 ML SYR SC SCH ×3 (04:50→22:56)
[2017-02-26] MEDS: HYDROCODONE/APAP 5/325 TAB PO PRN ×3 (04:50→17:23)
--- NOTE | 2017-02-26 07:33 | SOAPPROG ---
SOAP Progress Note Assessment/Plan: POD#3: Transaortic septal myomectomy, aortic valvuloplasty, asc aortic replacement w #26 hemashield graft, prophylactic AtriClip lig LISA HOCM with severe asymmetric septal hypertrophy, mitral MONA and mild to moderate MR - Mitral competency restored s/p extended transaortic septal myomectomy. Surveillance per cardiology. Aneurysmal ascending aorta with AI - Aortic competency restored with commissuroplasty. Asc aorta replaced from STJ to innominate with dacron interposition graft. Antithrombotic prophylaxis with ASA alone pending stability of rhythm. Plan for removal of remaining CT and pacing wire this morning. Acute expected blood loss anemia - Stable. No blood or blood products transfused. RAD/emphysema - Stable. Extubated in the OR. No bronchodilators, IPPB, mucolytics required. Coronary atherosclerosis with preserved LV systolic fx - Stable. Secondary prevention with baby ASA, BB, and statin. Subjective: Feels well today. Denies pain/SOB. Trying to push himself as much as possible. Objective: Vital Signs Temp Pulse Resp BP Pulse Ox 36.7 C 100 18 117/75 85 L 02/26/17 04:00 02/26/17 04:00 02/26/17 04:00 02/26/17 04:00 02/26/17 05:06 Laboratory Results 02/25/17 05:25 02/26/17 04:50 02/25/17 02/26/17 02/27/17 05:59 05:59 05:59 Intake Total 4140 1210 Output Total 1050 1885 Balance 3090 -675 PT 13.4 SEC (12.0-15.0) 02/22/17 09:17 INR 1.00 (0.83-1.16) 02/22/17 09:17 Physical Exam - Physical Exam General Appearance: WD/WN, alert, no apparent distress EENT: No scleral icterus (R), No scleral icterus (L) Neck: normal inspection Respiratory: No respiratory distress Cardiac/Chest: regular rate, rhythm Abdomen: non-tender, soft, No distended Skin: normal color, warm/dry Extremities: pedal edema (trace BLE) Neuro/Psych: no motor/sensory deficits, alert, normal mood/affect, oriented x 3 ICD10 Worksheet Patient Problems: Problems Problem Status Onset Acute blood loss anemia Acute S/P ascending aortic replacement Acute ~02/23/17 S/P ventricular septal myectomy Acute ~02/23/17 Ascending aortic aneurysm Chronic Asymmetric septal hypertrophy Chronic Hypertrophic obstructive cardiomyopathy (HOCM) Chronic
[2017-02-26] MEDS: SENNOSIDES/DOCUSATE SODIUM TAB PO SCH (07:58)
[2017-02-26] MEDS: METOPROLOL TARTRATE 25 MG TAB PO SCH ×2 (07:59→20:14)
[2017-02-26] MEDS: ASPIRIN 81 MG CHEWABLE TAB PO SCH (07:59)
[2017-02-26] MEDS: PANTOPRAZOLE SODIUM 40 MG TAB PO SCH (07:59)
[2017-02-26] MEDS: FUROSEMIDE 40 MG TAB PO SCH (14:06)
[2017-02-26] MEDS: POTASSIUM CL 20 MEQ TAB PO SCH (14:06)
[2017-02-26] MEDS ORDERED: CYANO/VITAMIN B12 1000 MCG TAB PO SCH (21:00)
[2017-02-26] MEDS ORDERED: SENNOSIDES/DOCUSATE SODIUM TAB PO PRN (21:00)
[2017-02-26] MEDS ORDERED: MULTIVITAMINS 1 EACH TAB PO SCH (21:00)
[2017-02-26] MEDS ORDERED: CHOLECALCIFEROL VIT D3 2,000 UNITS TAB/CAP PO SCH (21:00)
[2017-02-26] MEDS ORDERED: ATORVASTATIN CALCIUM 10 MG TAB PO SCH (21:00)
[2017-02-26] MEDS ORDERED: METOPROLOL TARTRATE 25 MG TAB PO ONE (21:06)
[2017-02-27] MEDS: HEPARIN 5,000 UNIT/0.5 ML SYR SC SCH ×2 (05:06→14:03)
[2017-02-27] MEDS: HYDROCODONE/APAP 5/325 TAB PO PRN ×2 (05:06→11:31)
--- NOTE | 2017-02-27 07:26 | SOAPPROG ---
SOAP Progress Note Assessment/Plan: Assessment: POD#4 Transaortic septal myomectomy, aortic valvuloplasty, asc aortic replacement w #26 hemashield graft, prophylactic AtriClip lig LISA HOCM with severe asymmetric septal hypertrophy, mitral MONA and mild to moderate MR - Mitral competency restored s/p extended transaortic septal myomectomy. Surveillance per cardiology. Aneurysmal ascending aorta with AI - Aortic competency restored with commissuroplasty. Asc aorta replaced from STJ to innominate with dacron interposition graft. Stable early postop course. Tubes and wires out. Actively diuresing moderate volume overload. BP control and AF prophylaxis with BB. Antithrombotic prophylaxis with ASA alone pending stability of rhythm. Acute expected blood loss anemia - Stable. No blood or blood products transfused. H/H > 9/25 maintained. RAD/emphysema - Stable. Extubated in the OR. No bronchodilators, IPPB, mucolytics required. Steady decrease in suppl O2 req. Coronary atherosclerosis with preserved LV systolic fx - Stable. Secondary prevention with baby ASA, BB, and statin. Plan: Cont metoprolol 37.5 mg BID. Ck potassium. Relax diuresis tomorrow. Wean O2. Cont inc activity. Dispo - Home later today if HR controlled. 02/27/17 07:24 Subjective: Feels well. Showered. Good pain control. Cont improvement ambulatory capacity. Hopeful for home today. Objective: Vital Signs Temp Pulse Resp BP Pulse Ox 37.0 C 93 12 121/78 H 97 02/27/17 07:10 02/27/17 07:10 02/27/17 07:10 02/27/17 07:10 02/27/17 07:10 Laboratory Results 02/27/17 05:45 02/26/17 04:50 02/26/17 02/27/17 02/28/17 05:59 05:59 05:59 Intake Total 1210 1630 Output Total 1885 100 Balance -675 1530 PT 13.4 SEC (12.0-15.0) 02/22/17 09:17 INR 1.00 (0.83-1.16) 02/22/17 09:17 ST w PACs for which BB inc last noc. Good diuresis, down 4 kg and now within 3 kg admit wt. Almost off O2. - Pending Discharge Pending Discharge Within 24 Hours: Yes Pending Discharge Date: 02/28/17 Pending Discharge Time: 11:00 Physical Exam - Physical Exam General Appearance: alert, no apparent distress Respiratory: lungs clear Cardiac/Chest: other (Irreg HR with freq premature beats. Sternum grossly stable. Sternotomy CDI. ) Abdomen: non-tender, soft Skin: warm/dry Extremities: other (no visible edema) ICD10 Worksheet Patient Problems: Problems Problem Status Onset Acute blood loss anemia Acute S/P ascending aortic replacement Acute ~02/23/17 S/P ventricular septal myectomy Acute ~02/23/17 Ascending aortic aneurysm Chronic Asymmetric septal hypertrophy Chronic Hypertrophic obstructive cardiomyopathy (HOCM) Chronic
[2017-02-27] MEDS: PANTOPRAZOLE SODIUM 40 MG TAB PO SCH (08:16)
[2017-02-27] MEDS: FUROSEMIDE 40 MG TAB PO SCH (08:17)
[2017-02-27] MEDS: POTASSIUM CL 20 MEQ TAB PO SCH (08:17)
[2017-02-27] MEDS ORDERED: ASPIRIN 325 MG TAB PO SCH (09:00)
[2017-02-27] MEDS ORDERED: METOPROLOL TARTRATE 25 MG TAB PO SCH (09:00)
[2017-02-27] MEDS ORDERED: METOPROLOL TARTRATE 50 MG TAB PO SCH (09:15)
[2017-02-27 11:20] VITALS: BP 100/65; PULSE 76; RESP 14; TEMP 97.5; O2SAT 99
[2017-02-27] MEDS ORDERED: POTASSIUM CL 20 MEQ TAB PO ONE (13:01)
--- NOTE | 2017-02-27 13:52 | ECHO ---
[email or web address] [address] [address] Main: [phone] Fax: Transthoracic Echocardiogram Name: MARY ANN MEYERS MR#: [id number] Study Date: 02/26/2017 Study Time: 08:20 AM Date of : 1965 Age: 51 year(s) Height: 12.7 cm (5 in.) Weight: 3.63 kg (8 lb.) BSA: 0.08 m2 Gender: Male Examination: Echo Indication: Post Op dilated AO, Septal myectomy, ascending aorta replacemant with #26 hemashield graft, aortic valvuloplasty. Image Quality: Contrast: Requested by: Farida Finnegan BP: 121 mmHg/78 mmHg Heart Rate: Rhythm: Normal sinus rhythm Indication: Post Op dilated AO, Septal myectomy, ascending aorta replacemant with #26 hemashield graft, aortic valvuloplasty. Procedure Staff Resource Recovery Specialist: Junior Mendoza Reading Physician: Lucia Shabazz Requesting Provider: Conclusions: Normal size left ventricle. Normal global systolic LV function. EF is 68 %. Septal wall motion consistent with myectomy. The maximum gradient thru the outflow tract is 7 mmHg with no acceleration of flow noted with valsalva maneuver.. Normal size right ventricle. Normal RV function. There is mild chordal MONA with no evidence a outflow gradient.. S/P aortic valve commissuroplasty with a AV PG mean gradient of 3 mmHg.. small amount of fibrinous debris in the pericardium near the RV apex. Measurements: Chambers Valvular Assessment AV/MV Valvular Assessment TV/PV Normal Normal Normal Name Value Range Name Value Range Name Value Range IVSd (2D): 1.1 cm (0.6 cm-1.1 AV meanP mmHg ( - ) cm) LVOT Vmax: 1.12 m/s (0.7 m/s-1.1 LVDd (2D): 4.1 cm (4.2 cm-5.9 m/s) cm) MV E Vmax: 0.76 m/s ( - ) LVDs (2D): 2.6 cm (2.1 cm-4 MV A Vmax: 0.54 m/s ( - ) cm) MV E/A: 1.41 ( - ) LVPWd (2D): 1.4 cm (0.6 cm-1 cm) LVEF (2D): 68 (>=54 %) Continued Measurements: Patient: MARY ANN MEYERS Study Date: 02/26/2017 Page 1 of 2 08:20 AM Findings: Left Ventricle: Normal size left ventricle. Normal global systolic LV function. EF is 68 %. Septal wall motion consistent with myectomy. The maximum gradient thru the outflow tract is 7 mmHg with no acceleration of flow noted with valsalva maneuver.. Right Ventricle: Normal size right ventricle. Normal RV function. Left Atrium: The left atrium is normal in size. Right Atrium: The right atrium is normal in size. Mitral Valve: There is mild chordal MONA with no evidence a outflow gradient.. Aortic Valve: S/P aortic valve commissuroplasty with a AV PG mean gradient of 3 mmHg.. Aorta: No acceleration of flow noted in the aortic arch. The ascending aorta is not well visualized due to lung interference.. Pericardium: small amount of fibrinous debris in the pericardium near the RV apex. (No Signature Object) Patient: MARY ANN MEYERS Study Date: 02/26/2017 Page 2 of 2 08:20 AM [id number]
--- NOTE | 2017-02-27 14:55 | PDDCSUM ---
Discharge Summary Discharge Summary: DATE OF ADMISSION: 02/22/17 DATE OF DISCHARGE: 02/27/17 DISPOSITION: Home, self-care PRINCIPAL ADMISSION DIAGNOSES: 1. Ascending aortic aneurysm 2. Hypertrophic obstructive cardiomyopathy with asymmetric septal hypertrophy PRINCIPAL DISCHARGE DIAGNOSES: 1. Systolic anterior motion of the mitral valve with moderate mitral regurgitation and left ventricular outflow tract obstruction 2. Moderate aortic insufficiency 3. Stable nonobstructive coronary artery disease 4. Mild left ventricular diastolic dysfunction 5. Mild pulmonary hypertension 6. Status post transaortic septal myomectomy 7. Status post aortic valvuloplasty 8. Status post ascending aortic replacement 9. Status post prophylactic clip ligation of the left atrial appendage 10. Acute expected blood loss anemia HISTORY OF PRESENT ILLNESS: 52 yo male with NYHA class II exertional dyspnea, HOCM, asymmetric septal hypertrophy, dynamic LVOT obstruction, and progressive enlargement of the ascending aorta associated with aortic insufficiency admitted in advance of scheduled cardiac surgery to complete risk stratification. Found to have moderate AI, significant MONA, moderate MR, stable coronary atherosclerosis, mild LVDD and mild PHTN. PERTINENT PAST MEDICAL HISTORY: Nonobstructive CAD, HTN, hyperlipidemia, COPD/emphysema/eosinophilic granulomatous disease, family hx of aortic dissection MEDICATIONS ON ADMISSION: Aspirin 325 mg daily, Vit D3 2,000 units hs, Vit B12 1,000 mcg hs, MVI daily, Metoprolol tartrate 25 mg BID, Diltiazem XT 180 mg hs, Atorvastatin 10 mg hs, Refresh Celluvisc eye drops prn ALLERGIES/SENSITIVITIES: NKDA CONSULTANTS: Pulmonology/critical care (Ramiro) PROCEDURES/IMAGIN/18 (Yuval): Transesophageal echocardiogram 02/22 (Teo): Left and right heart catheterization with selective coronary angiography and left ventriculogram. Access right groin. Findings: Codominant coronary circulation. Mild plaquing of LAD, 20-30% OM1 stenosis, 20-30% mid RCA stenosis. LVEDP 20. LVEF 65%. PA 40/18. PCWP 14. CI 3.25 02/23 (Zachary): Transaortic septal myomectomy. Aortic valvuloplasty with commissuroplasty and reduction of the sinotubular junction. Ascending aortic replacement with a 26 mm Hemashield graft. Prophylactic AtriClip ligation of the left atrial appendage. 02/26 (Harika): Transthoracic echocardiogram ABBREVIATED HOSPITAL COURSE BY ACTIVE PROBLEM LIST: 1. HOCM with severe asymmetric septal hypertrophy, mitral MONA and moderate MR - LVOT gradient succesfully reduced and mitral fx restored s/p extended septal myomectomy. Surveillance per cardiology. 2. Aneurysmal ascending aorta with moderate AI - Aortic competency restored with commissuroplasty. Asc aorta replaced from STJ to innominate with dacron interposition graft. Stable early postop course. Actively diuresing moderate volume overload. BP control and AF prophylaxis with BB uptitrated as tolerated. Antithrombotic prophylaxis with ASA alone. 3. Acute expected blood loss anemia - Stable. No blood or blood products transfused. H/H > 9/25 maintained. 4. COPD/emphysema - Stable. Extubated in the OR. No bronchodilators, IPPB, mucolytics required. Steady decrease in suppl O2 req. 5. Coronary atherosclerosis with preserved LV systolic fx - Stable. Secondary prevention with baby ASA, BB, and statin. DISCHARGE CLINICAL INFORMATION: Sternum grossly stable. Sternotomy CDI, sutured, +Dermabond. HR 70s. SBP 100s. SpO2 86% RA, correcting to 94% on 2 Lpm. Wt 3.2kg above admission at 87.4 kilos. Hgb 9.3, HCT 26.7, Plt 111, Na 137, K 3.9, Cr 0.8 DISCHARGE MEDICATIONS: As on admission with the following adjustments: 1. Hold Diltiazem. 2. Increase metoprolol tartrate to 50 mg BID. NEW prescriptions: 1. Lasix 40 mg 1/2 tab (20 mg) daily or as directed. 2. Klor-Con 20 meq 1/2 tab (10 meq) daily with Lasix or as directed. 3. Oxygen continuously at 1Lpm rest and 2 Lpm activity, or as directed by SpO2. 4. [place] 5/325 one half to two tabs q 4-6 hrs prn incisional discomfort. FOLLOW UP APPOINTMENTS: 1. CV surgery: with Dr Sharma at [facility] on 03/02 at 10:30 am. 2. Cardiology: with Dr Shabazz at [facility] within 4-6 weeks. Appointment to be established during surgical visit. FOLLOW UP TESTING: CXR prior to 2nd surgical appointment.
--- NOTE | 2017-02-27 14:58 | PDHOMEO2F ---
Home Oxygen Face to Face Home Orders: I certify that a physician or a nurse practitioner or physician's assistant corporation counsel has had a [id number] encounter with this patient on the date of this order due to the diagnosis listed, which relates to the primary reason the patient requires home oxygen. Alternative treatments have been tried, or considered, and deemed ineffective. It is anticipated that supplemental oxygen will result in improvement with treatment. Home oxygen qualifying diagnosis: emphysema Home oxygen secondary diagnosis: CAD SpO2 on room air (%): 84-86% Frequency of home oxygen needed: continuous Home oxygen liters per minute: 2 Home oxygen delivery device: nasal cannula Concentrator: Yes E-tanks for mobility and back up: Yes If ordering portable O2, is the patient mobile in the home?: Yes I certify that, based on these findings, the home oxygen is medically necessary for this patient for the following length of time. Length of time home oxygen needed: 99 years (unknown)
--- NOTE | 2017-02-27 17:29 | ASDISCHSUM ---
Discharge Information Plan Status:Home with No Needs Medically Cleared to Leave:02/26/2017 Discharge Date:02/27/2017 05:24 PM D/C Disposition:Home, Routine, Self-Care ADT D/C Disposition:Home, Routine, Self-Care Projected Discharge Date:02/27/2017 05:24 PM Transportation at D/C: Discharge Delay Reason: Follow-Up Date:02/27/2017 05:24 PM Discharge Slot: Final Diagnosis: Placement Information Patient Contact Information Contact Name:SAEED Relationship: Address:[address] [place] [address] City:[place] Alternate Phone: State/Zip Code:[place] [phone] Email: Financial Information Financial Class:HMO and PPO Plans Primary Plan Desc:[employer] Primary Plan Number:[id number] Secondary Plan Desc: Secondary Plan Number: Assessment Information [facility] CM Progress Note CM Note CM Note Notes: 02/25/2017 Case Management Note Reviewed chart, discussed in rounds. PT is recommending home independent. There are no case management d/c needs identified d/t pt age, marital status and activity levels prior to admission. Pt is independent in ADL's. Case Management d/c poc: home independent with follow up as directed. Case Management available if needs change. Date Signed: 02/25/2017 12:34 PM Electronically Signed By:Alona Dickson RN Intervention Information
== END 2017-02-27 17:24 | disposition home or self-care (01) | DRG 217 ==
LOC: FCATH 08:52 → F2W 11:39 → F2N 02-23 07:10 → F2W 02-24 11:18
PROVIDERS: ADMIT Thoracic Surgery (Cardiothoracic Vascular Surgery); ATTEND Thoracic Surgery (Cardiothoracic Vascular Surgery)
PROC: 4A023N8 Measurement of Cardiac Sampling and Pressure, Bilateral, Percutaneous Approach (ICD-10-PCS; 2017-02-22)
PROC: B2151ZZ Fluoroscopy of Left Heart using Low Osmolar Contrast (ICD-10-PCS; 2017-02-22)
PROC: B2111ZZ Fluoroscopy of Multiple Coronary Arteries using Low Osmolar Contrast (ICD-10-PCS; 2017-02-22)
PROC: B245ZZ4 Ultrasonography of Left Heart, Transesophageal (ICD-10-PCS; 2017-02-22)
PROC: 02RF0JZ Replacement of Aortic Valve with Synthetic Substitute, Open Approach (ICD-10-PCS; principal; 2017-02-23 07:15)
PROC: 02L70CK Occlusion of Left Atrial Appendage with Extraluminal Device, Open Approach (ICD-10-PCS; principal; 2017-02-23 07:15)
PROC: 5A1221Z Performance of Cardiac Output, Continuous (ICD-10-PCS; principal; 2017-02-23 07:15)
PROC: 02QG0ZZ Repair Mitral Valve, Open Approach (ICD-10-PCS; principal; 2017-02-23 07:15)
DX: I08.0 Rheumatic disorders of both mitral and aortic valves (principal); I42.1 Obstructive hypertrophic cardiomyopathy; D62 Acute posthemorrhagic anemia; I71.2 Thoracic aortic aneurysm, without rupture; I48.91 Unspecified atrial fibrillation; I27.20 Pulmonary hypertension, unspecified; I10 Essential (primary) hypertension; E78.5 Hyperlipidemia, unspecified; J44.9 Chronic obstructive pulmonary disease, unspecified; I25.10 Atherosclerotic heart disease of native coronary artery without angina pectoris; Z87.891 Personal history of nicotine dependence
CPT/HCPCS: 82947-QW; 97116-GP; 97162-GP; 97165-GO; 97530-GO; 97530-GP; 97535-GO; C1768; J0153; J0282; J0461; J0690; J1100; J1200; J1265; J1644; J1815; J1885; J2001; J2150; J2250; J2260; J2370; J2405; J2440; J2704; J2720; J2930; J3010; J7060; P9041; Q9967

== ENCOUNTER → 2017-03-06 | Outpatient (CLI) | payer OTHER | LOC: FIMAGING 13:11 → EDSTATUS 13:12 | PROVIDERS: ATTEND Thoracic Surgery (Cardiothoracic Vascular Surgery) | DX: J43.9 Emphysema, unspecified (principal) ==